=== PATIENT | male | born 1945 | race African-American/Black ===

== ENCOUNTER 2017-11-28 15:25 | Emergency (ER) | payer MEDICARE, OTHER ==
[~2017-11-28] VITALS: Ht 167.6 cm; Wt 96.0 kg
[~2017-11-28 15:25] MED LIST: 1-ME1LIQ PO; ASPI325T PO; BENI40TA30 PO; CHOL1CAP6 PO; ENOX40P SQ; LEVO.025 PO; LORTA5 PO; MONT10 PO; Z.0.COMMODE-3:1; Z.0.CPM; Z.0.WALKERFRONT
[2017-11-28 15:56] VITALS: BP 117/67; PULSE 68; RESP 16; TEMP 97.8; O2SAT 99
--- NOTE | 2017-11-28 17:04 | PD ---
HPI Chief Complaint: Musculoskeletal Complaint Time Seen by Provider: 16:47 Travel History International Travel<30 days: No Contact w/Intl Traveler<30days: No Traveled to known affect area: No History of Present Illness HPI 72-year-old -[place] male presents emergency department with mildly tender swelling over the left posterior elbow for the last 2 days. Patient states he noticed it at [employer], and this persisted over the past couple of days. He states that the pain is minimal, It is more irritating than painful. Patient denies any specific injury that he can recall. He states no other symptoms. Range of motion and strength is normal. He has no known drug allergies. PFSH Past Medical History Arthritis: Yes Cancer: No Cardiovascular Problems: Yes Diabetes: No Endocrine: Yes Genitourinary: No Hepatitis: No Hiatal Hernia: No Hypertension: Yes Immune Disorder: No Musculoskeletal: Yes (ARTHRITIS) Neurologic: No Psychiatric: No Reproductive: No Respiratory: No Immunizations Current: No Thyroid Disease: Yes Past Surgical History Abdominal Surgery: No AICD: No Arteriovenous Shunt: No Cardiac Surgery: No Ear Surgery: No Endocrine Surgery: No Eye Surgery: No Genitourinary Surgery: No Gynecologic Surgery: No Insulin Pump: No Joint Replacement: No Oral Surgery: No Pacemaker: No Thoracic Surgery: No Other Surgery: Yes Social History Alcohol Use: No Tobacco Use: No Substance Use: No Allergies-Medications (Allergen,Severity, Reaction): Coded Allergies: No Known Allergies (Unverified Adverse Reaction, Unknown, 11/28/17) Reported Meds & Prescriptions Reported Meds & Active Scripts Active Walker Front Wheel (Walkerfront) Device 1 Unit Cpm Machine (Cpm) Device 1 Unit Commode-3:1 Device 1 Unit [place] 5/325 (Hydrocodone/Acetaminophen 5/325) 5 mg/325 mg Tab 1-2 Tab PO Q4H PRN Aspirin 325 Mg Tab (Aspirin) 325 Mg Tab 325 Mg PO DAILY Start Aspirin after Lovenox is completed. Lovenox (Enoxaparin Sodium) 40 Mg/0.4 Ml Inj 40 Mg SQ DAILY UNGRADUATED PREFILLED SYRINGE Start Aspirin after Lovenox is completed. Reported Benicar (Olmesartan) 40 Mg Tab 40 Mg PO DAILY Montelukast Sodium 10 Mg Tab 10 Mg PO HS Vitamin D-3 (Cholecalciferol) 1,000 Unit Tab 1,000 Unit PO DAILY Levothyroxine 25 mcg (Levothyroxine Sodium) 25 Mcg Tab 1 Tab PO DAILY Amlodipine Besylate 10 mg (Amlodipine Besylate) 10 Mg Tab 1 Tab PO DAILY Review of Systems Except as stated in HPI: all other systems reviewed are Neg General / Constitutional: No: Fever Eyes: No: Visual changes HENT: No: Headaches Cardiovascular: No: Chest Pain or Discomfort Respiratory: No: Shortness of Breath Gastrointestinal: No: Abdominal Pain Genitourinary: No: Dysuria Musculoskeletal: Positive: Other (See history of present illness), No: Myalgias , Arthralgias, Limited ROM, Pain Skin: No Rash Neurologic: No: Weakness Psychiatric: No: Depression Endocrine: No: Polydipsia Hematologic/Lymphatic: No: Easy Bruising Physical Exam Narrative GENERAL: Patient is in no acute distress SKIN: Warm and dry. Normal color. Normal turgor. No rash HEAD: Atraumatic. Normocephalic. EYES: Pupils equal and round. No scleral icterus. No injection or drainage. ENT: No nasal bleeding or discharge. Mucous membranes pink and moist. NECK: Trachea midline. No JVD. CARDIOVASCULAR: Regular rate and rhythm. RESPIRATORY: No accessory muscle use. Clear to auscultation. Breath sounds equal bilaterally. GASTROINTESTINAL: Abdomen soft, non-tender, nondistended. Hepatic and splenic margins not palpable. MUSCULOSKELETAL: Extremities without clubbing, cyanosis, or edema. No obvious deformities. Patient has obvious swelling over the left olecranon bursa. There is no sign of erythema or cellulitis. Range of motion is full and without tenderness. NEUROLOGICAL: Awake and alert. No obvious cranial nerve deficits. Motor grossly within normal limits. Five out of 5 muscle strength in the arms and legs. Normal speech. PSYCHIATRIC: Appropriate mood and affect; insight and judgment normal. Data Data Last Documented VS Vital Signs Date Time Temp Pulse Resp B/P (MAP) Pulse Ox O2 Delivery O2 Flow Rate FiO2 11/28/17 15:56 97.8 68 16 117/67 (84) 99 MDM Medical Decision Making Medical Screen Exam Complete: Yes Emergency Medical Condition: Yes Differential Diagnosis Left elbow swelling. Olecranon bursitis. Mild elbow pain. Narrative Course Patient is felt to have olecranon bursitis. Radiographic imaging is not felt warranted based on my history and physical. Kishan bandages placed for compression to the area. Patient is to use ice and Aleve or ibuprofen as discussed. Patient can follow-up with Dr. Irby, his orthopedist if symptoms persist. Patient should be seen immediately if any redness or increased pain develops per Diagnosis Primary Impression: Olecranon bursitis, left elbow Referrals: Gabriel Buitrago MD as needed Patient Instructions: Elbow Bursitis (ED), Elbow Bursitis Exercises (GEN), General Instructions Additional Instructions: Patient is felt to have olecranon bursitis. Radiographic imaging is not felt warranted based on my history and physical. Kishan bandages placed for compression to the area. Patient is to use ice and Aleve or ibuprofen as discussed. Patient can follow-up with Dr. Irby, his orthopedist if symptoms persist. Patient should be seen immediately if any redness or increased pain develops per Med/Other Pt SpecificInfo: No Meds Exist/No RX given Disposition: 01 DISCHARGE HOME Condition: Stable Delfino Huston Nov 28, 2017 17:04
== END 2017-11-28 17:12 | disposition home or self-care (01) ==
LOC: NEPD 15:25
DX: M70.22 Olecranon bursitis, left elbow (principal); M19.90 Unspecified osteoarthritis, unspecified site; I10 Essential (primary) hypertension; E07.9 Disorder of thyroid, unspecified
CPT/HCPCS: 99282